=== PATIENT | female | born 1995 | race Native Hawaiian/Other Pacific Islander ===

== ENCOUNTER 2017-11-02 20:31 | Emergency (ER) | payer OTHER ==
--- NOTE | 2017-11-02 23:36 | ER Document Report ---
ED Medical Screen (RME) - General Chief Complaint: Vaginal Bleeding Stated Complaint: ABDOMINAL PAIN,VAGINAL BLEEDING Time Seen by Provider: 11/02/17 23:33 Mode of Arrival: Ambulatory Information source: Patient Notes: 22-year-old female presents to ED for vaginal bleeding and pelvic pain. She states she is 10 weeks . She states she had a ultrasound on October [facility] at [facility] [place] and was 10 weeks . She denies any urinary symptoms. She states the bleeding is getting worse. I have greeted and performed a rapid initial assessment of this patient. A comprehensive ED assessment and evaluation of the patient, analysis of test results and completion of medical decision making process will be conducted by an additional ED providers. TRAVEL OUTSIDE OF THE [place] IN LAST 30 DAYS: No
[2017-11-02 23:59] LABS: ABSOLUTE BASOPHILS # (AUTO) 0.1 10^3/uL (0.0-0.2); ABSOLUTE EOSINOPHILS # (AUTO) 0.1 10^3/uL (0.0-0.6); ABSOLUTE LYMPHOCYTES (AUTO) 1.7 10^3/uL (0.5-4.7); ABSOLUTE MONOCYTES (AUTO) 0.5 10^3/uL (0.1-1.4); ABSOLUTE NEUT (AUTO) 7.9 10^3/uL (1.7-8.2); BASOPHILS % (AUTO) 0.5 % (0-2); EOSINOPHILS % (AUTO) 0.6 % (0-6); HEMATOCRIT 38.4 % (36.0-47.0); HEMOGLOBIN 12.9 g/dL (12.0-15.5); LYMPHOCYTES % (AUTO) 16.7 % (13-45); MEAN CORPUSCULAR HEMOGLOBIN 28.3 pg (27.0-33.4); MEAN CORPUSCULAR HGB CONC 33.7 g/dL (32.0-36.0); MEAN CORPUSCULAR VOLUME 84 fl (80-97); MONOCYTES % (AUTO) 5.3 % (3-13); PLATELET COUNT 214 10^3/uL (150-450); RED BLOOD COUNT 4.57 10^6/uL (3.72-5.28); RED CELL DISTRIBUTION WIDTH 15.4 % (11.5-14.0); SEGMENTED NEUTROPHILS % (AUTO) 76.9 % (42-78); TOTAL CELLS COUNTED % (AUTO) 100 %; WHITE BLOOD COUNT 10.2 10^3/uL (4.0-10.5)
[2017-11-03 00:13] LABS: APPEARANCE,URINE CLOUDY; BILIRUBIN,URINE NEGATIVE (NEGATIVE); COLOR,URINE YELLOW; GLUCOSE, URINE NEGATIVE (NEGATIVE); KETONES,URINE NEGATIVE (NEGATIVE); LEUKOCYTE ESTERASE,URINE NEGATIVE (NEGATIVE); NITRITE,URINE NEGATIVE (NEGATIVE); PROTEIN,URINE NEGATIVE (NEGATIVE); URINE SPECIFIC GRAVITY 1.021; UROBILINOGEN,URINE NEGATIVE mg/dL (<2.0)
[2017-11-03 00:47] LABS: ANION GAP 12 (5-19); BLOOD UREA NITROGEN 9 mg/dL (7-20); CALCIUM 10.2 mg/dL (8.4-10.2); CARBON DIOXIDE 24 mmol/L (22-30); CHLORIDE 105 mmol/L (98-107); GLUCOSE 89 mg/dL (75-110); POTASSIUM 4.1 mmol/L (3.6-5.0); SODIUM 140.7 mmol/L (137-145)
--- NOTE | 2017-11-03 02:25 | ER Document Report ---
ED General - General Chief Complaint: Vaginal Bleeding Stated Complaint: ABDOMINAL PAIN,VAGINAL BLEEDING Time Seen by Provider: 11/02/17 23:33 Mode of Arrival: Ambulatory Notes: Patient is a 22-year-old female at 10 weeks who presents with 1 week of intermittent vaginal bleeding. 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 She denies any history of this during her prior . Her first child is only 4 months old. She denies any abdominal pain, nausea, vomiting, fever, headache or neck pain. She has not noted that anything improves or worsens bleeding. She did become concerned because she states she fell yesterday landing onto her bottom and had increasing bleeding for several hours thereafter but the bleeding has now again returned to its normal level from prior to the fall. She states that she goes through approximately 1-2 pads daily. TRAVEL OUTSIDE OF THE [place] IN LAST 30 DAYS: No Past Medical History - General Information source: Patient - Social History Smoking Status: Never Smoker Frequency of alcohol use: None Drug Abuse: None Lives with: Spouse/Significant other Family History: Reviewed & Not Pertinent Review of Systems - Review of Systems Notes: Constitutional: Negative for fever. HENT: Negative for sore throat. Eyes: Negative for visual changes. Cardiovascular: Negative for chest pain. Respiratory: Negative for shortness of breath. Gastrointestinal: Negative for abdominal pain, vomiting or diarrhea. Genitourinary: Positive for vaginal bleeding Musculoskeletal: Negative for back pain. Skin: Negative for rash. Neurological: Negative for headaches, weakness or numbness. 10 point ROS negative except as marked above and in HPI. Physical Exam - Vital signs Vitals: Temp Pulse Resp BP Pulse Ox 99.2 F 86 16 118/68 99 11/03/17 01:07 11/03/17 01:07 11/03/17 01:07 11/03/17 01:07 11/03/17 01:07 Interpretation: Normal Notes: PHYSICAL EXAMINATION: GENERAL: Well-appearing, well-nourished and in no acute distress. HEAD: Atraumatic, normocephalic. EYES: Pupils equal round and reactive to light, extraocular movements intact, sclera anicteric, conjunctiva are normal. ENT: nares patent, oropharynx clear without exudates. Moist mucous membranes. NECK: Normal range of motion, supple without lymphadenopathy LUNGS: Breath sounds clear to auscultation bilaterally and equal. No wheezes rales or rhonchi. HEART: Regular rate and rhythm without murmurs ABDOMEN: Soft, nontender, normoactive bowel sounds. No guarding, no rebound. No masses appreciated. EXTREMITIES: Normal range of motion, no pitting or edema. No cyanosis. NEUROLOGICAL: No focal neurological deficits. Moves all extremities spontaneously and on command. PSYCH: Normal mood, normal affect. SKIN: Warm, Dry, normal turgor, no rashes or lesions noted. Course - Re-evaluation Re-evalutation: 11/03/17 02:22 Patient at 10 weeks of gestation presents with several weeks of vaginal bleeding. Bedside ultrasound shows a viable intrauterine , appropriate cardiac activity and active movement. Patient denies any dysuria. The patient does not have any focal right lower quadrant tenderness, rebound or guarding to suggest acute appendicitis. No right upper quadrant tenderness to suggest cholestasis of or an acute cholecystitis. Patient has tolerated oral intake here in the emergency department without difficulty. Vitals are within normal limits. No anemia. She is Rh+. At this time will discharge with return precautions and follow-up recommendations. Verbal discharge instructions given a the bedside and opportunity for questions given. Medication warnings reviewed. Patient is in agreement with this plan and has verbalized understanding of return precautions and the need for primary care follow-up in the next 24-72 hours. - Vital Signs Vital signs: Temp Pulse Resp BP Pulse Ox 99.2 F 86 16 118/68 99 11/03/17 01:07 11/03/17 01:07 11/03/17 01:07 11/03/17 01:07 11/03/17 01:07 - Laboratory Result Diagrams: 11/02/17 23:40 11/02/17 23:40 Laboratory results interpreted by me: 11/02/17 11/02/17 11/02/17 23:40 23:40 23:45 RDW 15.4 H Beta HCG, Quant [id number] H Urine Ascorbic Acid 20 H Discharge - Discharge Clinical Impression: Vaginal bleeding during , antepartum Condition: Good Disposition: HOME, SELF-CARE Additional Instructions: Your ultrasound today shows a living intrauterine . You do have a small subchorionic hemorrhage. Many pregnancies with this complication can go on to become normal pregnancies. 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 Please return if you develop severe abdominal pain, bleeding that goes through more than 2 pads for more than 2 hours, pass out, or have any other symptoms that are concerning to you. Please follow-up closely with your OBGYN regarding todays visit.
[2017-11-03 02:44] VITALS: BP 118/68
== END 2017-11-03 02:50 | disposition home or self-care (01) ==
LOC: ER 20:31
DX: O20.9 Hemorrhage in early pregnancy, unspecified (principal); Z3A.10 10 weeks gestation of pregnancy
CPT/HCPCS: 36415; 80048; 81001; 84702; 85025; 86900; 86901; 99284

== ENCOUNTER 2018-01-13 13:19 | Outpatient (CLI) | payer OTHER ==
[2018-01-13 14:34] LABS: URINE AMPHETAMINES SCREEN NEGATIVE; URINE BARBITURATES SCREEN NEGATIVE; URINE BENZODIAZEPINES SCREEN NEGATIVE; URINE COCAINE SCREEN NEGATIVE; URINE MARIJUANA (THC) SCREEN NEGATIVE; URINE METHADONE SCREEN NEGATIVE; URINE PHENCYCLIDINE SCREEN NEGATIVE
[2018-01-13 14:35] LABS: APPEARANCE,URINE CLOUDY; BILIRUBIN,URINE NEGATIVE (NEGATIVE); GLUCOSE, URINE NEGATIVE (NEGATIVE); KETONES,URINE NEGATIVE (NEGATIVE); LEUKOCYTE ESTERASE,URINE SMALL (NEGATIVE); NITRITE,URINE NEGATIVE (NEGATIVE); PROTEIN,URINE NEGATIVE (NEGATIVE); URINE SPECIFIC GRAVITY 1.021
[2018-01-13 14:36] LABS: COLOR,URINE YELLOW
--- NOTE | 2018-01-13 17:02 | RADIOLOGY REPORT (SQ) ---
EXAM DESCRIPTION: U/S OB LIMITED COMPLETED DATE/TIME: 01/13/2018 4:50 pm REASON FOR STUDY: well being and 20 +2 w COMPARISON: None. TECHNIQUE: Limited transabdominal grayscale ultrasound for evaluation of specific requested obstetri joel parameters. LIMITATIONS: None. FINDINGS: CERVICAL LENGTH: 3.5 Closed. ANJALI: Largest pocket 6.4 cm FHR: 171 beats per minute. PRESENTATION: Breech. OTHER: Placenta anterior, no previa or abruption IMPRESSION: LIMITED OBSTETRICAL ULTRASOUND WITH MEASURED PARAMETERS DELINEATED ABOVE. Trimester of : Second trimester - 13 weeks 1 day to 27 weeks 6 days. TECHNICAL DOCUMENTATION: JOB ID: [id number] [employer]- All Rights Reserved Reading location - IP/workstation name: [email or web address]
== END 2018-01-13 16:55 | disposition home or self-care (01) ==
LOC: LC 13:19
PROVIDERS: ATTEND Student in an Organized Health Care Education/Training Program
PROC: 4A1HXCZ Monitoring of Products of Conception, Cardiac Rate, External Approach (ICD-10-PCS; principal; 2018-01-13)
DX: O26.892 Other specified pregnancy related conditions, second trimester (principal); E86.0 Dehydration; Z3A.20 20 weeks gestation of pregnancy
CPT/HCPCS: 76815; 80307; 81001

== ENCOUNTER 2018-04-13 06:59 | Outpatient (CLI) | payer OTHER ==
[2018-04-13] MEDS ORDERED: HYDROXYZINE PAMOATE 50 MG CAPSULE PO ONE (07:52)
[2018-04-13 08:01] LABS: APPEARANCE,URINE SLIGHTLY-CLOUDY; BILIRUBIN,URINE NEGATIVE (NEGATIVE); COLOR,URINE YELLOW; GLUCOSE, URINE NEGATIVE (NEGATIVE); KETONES,URINE TRACE mg/dL (NEGATIVE); LEUKOCYTE ESTERASE,URINE TRACE (NEGATIVE); NITRITE,URINE NEGATIVE (NEGATIVE); PROTEIN,URINE 30 mg/dL (NEGATIVE); URINE SPECIFIC GRAVITY 1.023
[2018-04-13] MEDS ORDERED: HYDROXYZINE PAMOATE 50 MG CAPSULE ONE (08:08)
[2018-04-13 08:22] LABS: URINE AMPHETAMINES SCREEN NEGATIVE; URINE BARBITURATES SCREEN NEGATIVE; URINE BENZODIAZEPINES SCREEN NEGATIVE; URINE COCAINE SCREEN NEGATIVE; URINE MARIJUANA (THC) SCREEN NEGATIVE; URINE METHADONE SCREEN NEGATIVE; URINE PHENCYCLIDINE SCREEN NEGATIVE
--- NOTE | 2018-04-13 09:30 | RADIOLOGY REPORT (SQ) ---
EXAM DESCRIPTION: U/S OB LIMITED COMPLETED DATE/TIME: 04/13/2018 9:13 am REASON FOR STUDY: Cervical Length for contractions COMPARISON: None. TECHNIQUE: Limited transvaginal and transabdominal grayscale ultrasound for evaluation of specific r equested obstetrical parameters. LIMITATIONS: None. FINDINGS: CERVICAL LENGTH: 5 cm Closed. ANJALI: 8.3 cm. FHR: 131 beats per minute. PRESENTATION: Cephalic. OTHER: Anterior placenta grade 1 IMPRESSION: Findings as above Trimester of : Third trimester - 28 weeks to delivery. TECHNICAL DOCUMENTATION: JOB ID: [id number] [employer]- All Rights Reserved Reading location - IP/workstation name: [email or web address]
--- NOTE | 2018-04-13 10:08 | Non Stress Test Report ---
Non Stress Test Datetime Report Generated by CPN: 04/13/2018 10:08 DEMOGRAPHIC EGA NST: 33.2 INDICATION Indication for Study: labor VITAL SIGNS Temperature - NST: 97.9 Pulse - NST: 86 RESP - NST: 18 NBPSYS NST: 125 NBPDIA NST: 59 MONITORING Monitor Explained: Monitor Explained; Test Explained; Patient Verbalized Understanding Time on Monitor: 04/13/2018 07:19 Time off Monitor: 04/13/2018 09:53 NST Duration: 154 NST INTERVENTIONS NST Interventions: PO Hydration Physician Notified NST: KLINE, CNM BABY A: [id number] BABY A Movement : Present Contraction Frequency : 2-4 FHR Baseline : 135 Accelerations : 15X15 Decelerations : Variable Variability : Moderate 6-25bpm NST Review: Meets Criteria for Reactive NST NST Review and Verified By : Marcie Araiza RNC NST Results: Reactive NST REPORT Report Trigger: Send Report
== END 2018-04-13 10:02 | disposition home or self-care (01) ==
LOC: LC 06:59
PROVIDERS: ATTEND Obstetrics & Gynecology
PROC: 4A1HXCZ Monitoring of Products of Conception, Cardiac Rate, External Approach (ICD-10-PCS; principal; 2018-04-13)
DX: O47.03 False labor before 37 completed weeks of gestation, third trimester (principal); O36.8330 Maternal care for abnormalities of the fetal heart rate or rhythm, third trimester, not applicable or unspecified; Z3A.33 33 weeks gestation of pregnancy
CPT/HCPCS: 59025; 76815; 80307; 81005

== ENCOUNTER 2018-11-16 21:58 | Emergency (ER) | payer OTHER ==
[2018-11-16 22:14] VITALS: BP 119/79
[2018-11-17] MEDS ORDERED: PREDNISONE 20 MG TABLET PO ONE (00:56)
[2018-11-17] MEDS ORDERED: IPRATROPIUM/ALBUTEROL 0.5-2.5 MG/3 ML AMPUL NEB ONE (00:57)
--- NOTE | 2018-11-17 01:12 | ER Document Report ---
ED General - General Chief Complaint: Shortness Of Breath Stated Complaint: TROUBLE BREATHING,NOT FEELING WELL Time Seen by Provider: 11/16/18 23:45 Primary Care Provider: HA BATISTA [Primary Care Provider] - Follow up as needed Mode of Arrival: Ambulatory Information source: Patient TRAVEL OUTSIDE OF THE [place] IN LAST 30 DAYS: No - HPI Onset: Other - Past couple of days Onset/Duration: Gradual Quality of pain: No pain Severity: Moderate Associated symptoms: Productive cough. denies: Chills, Diarrhea, Fever, Nausea, Vomiting Exacerbated by: Denies Relieved by: Denies Similar symptoms previously: No Recently seen / treated by doctor: No Notes: 23-year-old female coming in today with chief complaint of upper respiratory infection for the past couple of days. Entire family has been sick. She is the last 1 to get the illness. She has a history of asthma. Does not normally take meds for this except when she gets ill. She has been coughing up green sputum for the past few days. She is not vomiting. Not running a fever. - Related Data Allergies/Adverse Reactions: No Known Allergies Allergy (Unverified 01/13/18 13:49) Past Medical History - General Information source: Patient - Social History Smoking Status: Never Smoker Family History: Reviewed & Not Pertinent Patient has suicidal ideation: No Patient has homicidal ideation: No Pulmonary Medical History: Reports: Hx Asthma Renal/ Medical History: Denies: Hx Peritoneal Dialysis Past Surgical History: Reports: Hx Gynecologic Surgery Review of Systems - Review of Systems Notes: Constitutional: No fevers. No chills. EENT: No eye redness. No eye pain. No ear pain. No sore throat. Cardiovascular: No chest pain. No palpitations. Respiratory: Cough and wheezing Gastrointestinal: No abdominal pain. No nausea, vomiting, or diarrhea. Genitourinary: Atraumatic. No lesions. No pain. No discharge. Musculoskeletal: Atraumatic. No swelling. No deformities. Skin: No rash or lesions. Lymphatic: No swollen lymph nodes. Neurologic: No headache. No syncope. Psychiatric: No suicidal or homicidal ideation. Physical Exam - Vital signs Vitals: Temp Pulse Resp BP Pulse Ox 97.9 F 98 18 119/79 99 11/16/18 21:58 11/16/18 21:58 11/16/18 21:58 11/16/18 21:58 11/16/18 21:58 - Notes Notes: General: Well-developed, well-nourished. In no acute distress. Non-toxic appearing. Cardiac: Well-perfused. Regular rate and rhythm. No murmurs, rubs, or gallops. Pulmonary: Slightly diminished. No wheezing. No crackles. No intercostal retractions. No distress. No dyspnea Abdominal: Non-distended. Non-rigid. Bowels sounds are present in all four quadrants. No guarding or rebound. HEENT: Head is atraumatic. Conjunctivae not reddened. No tearing. PERRL. EOMI. Orbits atraumatic. No periorbital swelling or erythema. Oropharynx is without erythema, swelling, or exudates. Neck: Supple. No adenopathy. No meningismus. Dermatologic: Warm with good turgor. No rash. Atraumatic. Chest: Atraumatic. No chest wall tenderness to palpation. Musculoskeletal: Moves all extremities well. No range of motion deficits. no muscular or joint tenderness. No paraspinal muscle tenderness. no midline spinal tenderness or step-off. Genitourinary: Examination deferred Neurologic: No gross neurologic deficits. Psychiatric: Normal mood. Course - Re-evaluation Re-evalutation: 11/17/18 01:08 Patient looks like a standard upper respiratory infection with asthma exacerbation. We will go ahead and start her back on her asthma meds including Flovent and albuterol. Start up prednisone and also add Bromfed-DM for cold symptoms - Vital Signs Vital signs: Temp Pulse Resp BP Pulse Ox 97.9 F 98 18 119/79 99 11/16/18 21:58 11/16/18 21:58 11/16/18 21:58 11/16/18 21:58 11/16/18 21:58 Discharge - Discharge Clinical Impression: Upper respiratory infection Qualifiers: URI type: unspecified URI Qualified Code(s): J06.9 - Acute upper respiratory infection, unspecified Asthma exacerbation Qualifiers: Asthma severity: unspecified severity Asthma persistence: intermittent Qualified Code(s): J45.21 - Mild intermittent asthma with (acute) exacerbation Condition: Good Disposition: HOME, SELF-CARE Instructions: Upper Respiratory Illness ([facility]), Asthma ([facility]) Prescriptions: Albuterol Sulfate [Proair HFA Inhalation Aerosol 8.5 gm MDI] 2 puff IH Q4H PRN #1 mdi PRN Reason: D-Methorphan Hb/P-Epd HCl/Bpm [Bromfed-DM Cough Syrup] 5 ml PO Q4H #240 ml Fluticasone Propionate [Flovent Hfa 44 Mcg Inhalation Aerosol 10.6 gm] 1 puff IH BID #1 inhaler Prednisone [Deltasone 20 mg Tablet] 2 tab PO DAILY 5 Days #10 tablet Referrals: LYNNE,NO [Primary Care Provider] - Follow up as needed [facility] [Provider Group] - Follow up as needed
== END 2018-11-17 01:23 | disposition home or self-care (01) ==
LOC: ER 21:58
DX: J06.9 Acute upper respiratory infection, unspecified (principal); J45.21 Mild intermittent asthma with (acute) exacerbation
CPT/HCPCS: 94640; 99284; J7512; J7620

== ENCOUNTER 2018-12-26 02:57 | Emergency (ER) | payer OTHER ==
--- NOTE | 2018-12-26 05:43 | ER Document Report ---
ED General - General Chief Complaint: Ear Pain Stated Complaint: EARACHE Time Seen by Provider: 12/26/18 05:34 Primary Care Provider: HA BATISTA [Primary Care Provider] - Follow up as needed Notes: Patient is a pleasant 23-year-old female presents with complaint of left ear pain that radiates down into the right jaw. She says this started in the last 12 hours. She said for the last several days she has had some runny nose and congestion. The congestion will start to get better and then she developed ear pain tonight therefore came to the ER. No objective fevers that she is aware of. No vomiting. No other complaints at this time. TRAVEL OUTSIDE OF THE [place] IN LAST 30 DAYS: No - Related Data Allergies/Adverse Reactions: No Known Allergies Allergy (Verified 12/26/18 03:17) Past Medical History - Social History Smoking Status: Never Smoker Frequency of alcohol use: None Drug Abuse: None Family History: Reviewed & Not Pertinent Pulmonary Medical History: Reports: Hx Asthma Renal/ Medical History: Denies: Hx Peritoneal Dialysis Past Surgical History: Reports: Hx Gynecologic Surgery Review of Systems - Review of Systems Notes: My Normal Review Basic REVIEW OF SYSTEMS: CONSTITUTIONAL : Denies fever, chills, or sweats. Denies recent illness. EENT: Congestion. Left-sided ear pain. RESPIRATORY: Denies cough, cold, or chest congestion. Denies shortness of breath, difficulty breathing, or wheezing. GASTROINTESTINAL: Denies abdominal pain. Denies nausea, vomiting, or diarrhea. MUSCULOSKELETAL: Denies neck or back pain or joint pain or swelling. SKIN: Denies rash or skin lesions. NEUROLOGICAL: Denies altered mental status or loss of consciousness. Denies headache. Denies weakness or paralysis or loss of use of either side. Denies problems with gait or speech. Denies sensory or motor loss. ALL OTHER SYSTEMS REVIEWED AND NEGATIVE. Physical Exam - Vital signs Vitals: Temp Pulse Resp BP Pulse Ox 98.3 F 100 16 141/88 H 98 12/26/18 02:57 12/26/18 02:57 12/26/18 02:57 12/26/18 02:57 12/26/18 02:57 - Notes Notes: General Appearance: Well nourished, alert, cooperative, no acute distress, mild obvious discomfort. Vitals: reviewed, See vital signs table. Head: no swelling or tenderness to the head Eyes: PERRL, EOMI, Conjuctiva clear Mouth: No decreasd moisture Throat: No tonsillar inflammation, No airway obstruction, No lymphadenopathy Ears: Normal-appearing right TM. Left TM is erythematous and bulging consistent with otitis media. No redness or swelling or pain over mastoid process. Neck: Supple, no neck tenderness, No neck swelling Lungs: No wheezing, No rales, No rhonci, No accessory muscle use, good air exchange bilaterally. Heart: Normal rate, Regular rythm, No murmur, no rub Skin: warm, dry, appropriate color, no rash Neuro: speech clear, oriented x 3, normal affect, responds appropriately to questions. Course - Re-evaluation Re-evalutation: 12/26/18 05:42 Reevaluation patient is well-appearing and not septic or toxic appearing. She said recent runny nose cough and congestion now has left ear pain. On exam she has a left bulging erythematous TM consistent with otitis media. I will place her on amoxicillin. I encouraged her to take ibuprofen and Tylenol for pain. Encouraged return to ER immediately if she has diarrhea, fevers not responding to Tylenol, severe headache, neck pain, or if she feels unwell. There is no redness or swelling over the mastoid process on exam. Patient agrees with plan will be discharged home. Dictation of this chart was performed using voice recognition software; therefore, there may be some unintended grammatical errors. - Vital Signs Vital signs: Temp Pulse Resp BP Pulse Ox 98.3 F 100 16 141/88 H 98 12/26/18 02:57 12/26/18 02:57 12/26/18 02:57 12/26/18 02:57 12/26/18 02:57 Discharge - Discharge Clinical Impression: Otitis media Qualifiers: Otitis media type: unspecified Chronicity: acute Qualified Code(s): H66.90 - Otitis media, unspecified, unspecified ear Condition: Good Disposition: HOME, SELF-CARE Additional Instructions: Otitis Media You have a middle ear infection (otitis media). This is usually a complication of a cold or sore throat. The middle ear cavity becomes filled with infection. Pressure and stretching of the ear drum cause pain. Antibiotics are required. A decongestant may be recommended if you have a "runny nose." You may need anesthetic drops or other pain medication. A follow-up exam may be recommended to make sure the infection has completely cleared. If the ear begins to drain, it means the ear drum has ruptured. This will usually heal spontaneously. However, it means you should keep the ear dry until re-examined by a doctor. Call the physician or return for examination at once if there is severe headache, stiff neck, confusion, increasing fever, or dizziness. You should improve significantly within two days. If you're not better, call the doctor. Please take the amoxicillin as prescribed. Please hold the antibiotic if you start having diarrhea and return to ER for reevaluation. Please follow-up with your primary care doctor in 5 days for reevaluation. Prescriptions: Amoxicillin Trihydrate [Amoxil 500 mg Capsule] 1,000 mg PO TID #42 cap
[2018-12-26 05:51] VITALS: BP 126/71
[2018-12-26] MEDS ORDERED: AMOXICILLIN TRIHYDRATE 500 MG CAPSULE PO ONE (06:02)
== END 2018-12-26 06:11 | disposition home or self-care (01) ==
LOC: ER 02:57
DX: H66.90 Otitis media, unspecified, unspecified ear (principal); H92.02 Otalgia, left ear; R05 Cough; R09.89 Other specified symptoms and signs involving the circulatory and respiratory systems; J45.909 Unspecified asthma, uncomplicated
CPT/HCPCS: 99282